=== PATIENT | female | born 1980 | race Two or more races ===

== ENCOUNTER 2020-05-27 09:16 | Outpatient (CLI) | payer OTHER | END 2020-05-27 09:17 | disposition home or self-care (01) | LOC: SONOGRAMA 09:16 | PROVIDERS: ATTEND Pathology Anatomic Pathology & Clinical Pathology | DX: C73 Malignant neoplasm of thyroid gland (principal) ==

== ENCOUNTER 2020-12-13 09:11 | Outpatient (CLI) | payer OTHER | END 2020-12-13 09:39 | disposition home or self-care (01) | LOC: SONOGRAMA 09:11 | PROVIDERS: ATTEND Pathology Anatomic Pathology | DX: C73 Malignant neoplasm of thyroid gland (principal) ==

== ENCOUNTER 2023-02-27 08:43 | Outpatient (CLI) | payer OTHER | END 2023-02-27 08:58 | disposition home or self-care (01) | LOC: SONOGRAMA 08:43 | PROVIDERS: ATTEND Specialist | DX: D17.1 Benign lipomatous neoplasm of skin and subcutaneous tissue of trunk (principal) ==

== ENCOUNTER 2024-10-27 07:52 | Outpatient (CLI) | payer OTHER | END 2024-10-27 08:05 | disposition home or self-care (01) | LOC: SONOGRAMA 07:52 | PROVIDERS: ATTEND Specialist | DX: D17.1 Benign lipomatous neoplasm of skin and subcutaneous tissue of trunk (principal) ==